=== PATIENT | female | born 1975 | race Caucasian/White ===

== ENCOUNTER 2021-09-30 14:15 | Outpatient (RCR) | payer OTHER | END 2021-10-02 | disposition home or self-care (01) | LOC: WSPT | DX: G57.02 Lesion of sciatic nerve, left lower limb (principal) ==

== ENCOUNTER 2024-05-01 10:30 | Outpatient (RCR) | payer MEDICAID | END 2024-05-02 | disposition home or self-care (01) | LOC: MKS.ESL.PT | DX: R20.0 Anesthesia of skin (principal) ==

== ENCOUNTER 2024-06-01 13:30 | Outpatient (RCR) | payer MEDICAID | END 2024-06-02 | disposition home or self-care (01) | LOC: MKS.ESL.PT | DX: R20.0 Anesthesia of skin (principal) ==

== ENCOUNTER 2024-06-27 13:00 | Outpatient (RCR) | payer MEDICAID | END 2024-07-02 | disposition home or self-care (01) | LOC: MKS.ESL.PT | DX: R20.0 Anesthesia of skin (principal); M54.42 Lumbago with sciatica, left side; G89.29 Other chronic pain ==